=== PATIENT | female | born 1960 | race Caucasian/White ===

== ENCOUNTER 2020-12-25 18:49 | Emergency (ER) | payer MEDICARE, OTHER ==
[~2020-12-25] VITALS: Ht 165.1 cm; Wt 113.6 kg
[~2020-12-25 18:49] MED LIST: ASPI-556 PO; LISI-892 PO; METF-444 PO; TRAM50TA4 PO
[2020-12-25] MEDS ORDERED: LISI-894 PO (19:02)
[2020-12-25] MEDS ORDERED: CARV6 PO (19:02)
[2020-12-25] MEDS ORDERED: SIMV-260 PO (19:02)
[2020-12-25] MEDS ORDERED: METF-960 PO (19:02)
[2020-12-25 19:13] LABS: GLUCOSE,POINT OF CARE 222 MG/DL (70-110)
[2020-12-25 21:25] VITALS: BP 135/70
== END 2020-12-25 22:07 | disposition home or self-care (01) ==
LOC: EMS 18:49
DX: L23.9 Allergic contact dermatitis, unspecified cause (principal); E11.9 Type 2 diabetes mellitus without complications; E78.00 Pure hypercholesterolemia, unspecified; I10 Essential (primary) hypertension; Z79.899 Other long term (current) drug therapy; Z79.84 Long term (current) use of oral hypoglycemic drugs
CPT/HCPCS: 82962; 99283

== ENCOUNTER 2021-10-08 11:28 | Emergency (ER) | payer OTHER ==
[~2021-10-08] VITALS: Ht 162.6 cm; Wt 118.2 kg
[~2021-10-08 11:28] MED LIST changes: +CARV6 PO; -LISI-892 PO; +LISI-894 PO; +METF-1211 PO; -METF-444 PO; +SIMV-260 PO; -TRAM50TA4 PO
[2021-10-08 11:32] VITALS: BP 146/84
[2021-10-08] MEDS ORDERED: DICLOFENAC SODIUM 1% 100 GM GEL [2GM] TP ONE (13:45)
== END 2021-10-08 14:32 | disposition home or self-care (01) ==
LOC: EMS 11:28
DX: M75.31 Calcific tendinitis of right shoulder (principal); I10 Essential (primary) hypertension; E11.9 Type 2 diabetes mellitus without complications; Z79.84 Long term (current) use of oral hypoglycemic drugs; Z79.82 Long term (current) use of aspirin; Z79.899 Other long term (current) drug therapy
CPT/HCPCS: 99283

== ENCOUNTER 2023-02-28 12:31 | Emergency (ER) | payer OTHER ==
[~2023-02-28] VITALS: Ht 160 cm; Wt 109.1 kg
[2023-02-28 12:38] VITALS: TEMP 98.2
[2023-02-28] MEDS ORDERED: SEMA0.258 SQ (12:41)
[2023-02-28] MEDS ORDERED: OMEP20CA12 PO (12:41)
[2023-02-28] MEDS ORDERED: DOCU-350 PO (12:41)
[2023-02-28] MEDS ORDERED: ATOR20TA65 PO (12:41)
[2023-02-28] MEDS ORDERED: ASPI-1444 PO (12:41)
[2023-02-28] MEDS ORDERED: CHOL200074 PO (12:41)
[2023-02-28] MEDS ORDERED: HYDR25TA2 PO (12:41)
[2023-02-28] MEDS ORDERED: ALBU18HF12 PO (12:41)
[2023-02-28] MEDS ORDERED: DAPA10TA PO (12:41)
[2023-02-28] MEDS ORDERED: FAMO20 PO (12:41)
[2023-02-28] MEDS ORDERED: LISI40TA9 PO (12:41)
[2023-02-28] MEDS ORDERED: FERR324T3 PO (12:41)
[2023-02-28] MEDS ORDERED: METF-446 PO (12:41)
[2023-02-28] MEDS ORDERED: IBUPROFEN 600 MG TABLET PO ONE (13:15)
[2023-02-28] MEDS ORDERED: IBUP-1492 PO (13:41)
[2023-02-28 14:50] VITALS: BP 111/71; PULSE 64; RESP 16
== END 2023-02-28 15:14 | disposition home or self-care (01) ==
LOC: EMS 12:32
DX: S86.812A Strain of other muscle(s) and tendon(s) at lower leg level, left leg, initial encounter (principal); E11.9 Type 2 diabetes mellitus without complications; E78.00 Pure hypercholesterolemia, unspecified; I10 Essential (primary) hypertension; X50.1XXA Overexertion from prolonged static or awkward postures, initial encounter; Y93.89 Activity, other specified; Y92.89 Other specified places as the place of occurrence of the external cause; Y99.8 Other external cause status
CPT/HCPCS: 82962; 99283

== ENCOUNTER 2025-04-14 13:27 | Emergency (ER) | payer OTHER ==
[~2025-04-14] VITALS: Ht 160 cm; Wt 112.0 kg
[~2025-04-14 13:27] MED LIST changes: +ALBU18HF12 PO; +ASPI-1444 PO; -ASPI-556 PO; +ATOR20TA65 PO; -CARV6 PO; +CHOL200074 PO; +DAPA10TA PO; +DOCU-412 PO; +FAMO20 PO; +FERR324T3 PO; +HYDR25TA2 PO; +IBUP-1492 PO; +LISI-1024 PO; -LISI-894 PO; -METF-1211 PO; +METF-446 PO; +OMEP20CA12 PO; +SEMA0.258 SQ; -SIMV-260 PO
[2025-04-14 13:33] VITALS: BP 117/62; PULSE 65; RESP 18; TEMP 99; O2SAT 99
[2025-04-14 13:56] LABS: GLUCOMETER DEV NAME(LOC) ER.7; GLUCOSE,POINT OF CARE 134 MG/DL (70-110)
[2025-04-14 14:13] LABS: COVID AG,FIA SOURCE NASAL SWAB
[2025-04-14 14:40] LABS: SARS-COV2 (COVID) ANTIGEN,FIA Negative (Negative)
[2025-04-14 14:57] LABS: INFLUENZA TYPE A NEGATIVE FOR TYPE A (NEGATIVE); INFLUENZA TYPE B NEGATIVE FOR TYPE B (NEGATIVE)
[2025-04-14] MEDS ORDERED: IBUP-1492 PO (15:13)
== END 2025-04-14 16:57 | disposition home or self-care (01) ==
LOC: EMS 13:28
DX: S62.630A Displaced fracture of distal phalanx of right index finger, initial encounter for closed fracture (principal); E11.9 Type 2 diabetes mellitus without complications; E78.00 Pure hypercholesterolemia, unspecified; I10 Essential (primary) hypertension; Z79.85 Long-term (current) use of injectable non-insulin antidiabetic drugs; Z79.82 Long term (current) use of aspirin; Z20.822 Contact with and (suspected) exposure to COVID-19; Z79.899 Other long term (current) drug therapy; W23.0XXA Caught, crushed, jammed, or pinched between moving objects, initial encounter; Y93.89 Activity, other specified; Y92.89 Other specified places as the place of occurrence of the external cause; Y99.8 Other external cause status
CPT/HCPCS: 82962; 87804; 99284

== ENCOUNTER 2025-08-01 12:07 | Emergency (ER) | payer OTHER ==
[~2025-08-01] VITALS: Ht 160 cm; Wt 109.1 kg
[2025-08-01 12:27] VITALS: BP 151/79; PULSE 68; RESP 16; TEMP 97.9; O2SAT 100
[2025-08-01] MEDS ORDERED: DiphenhydrAMINE/ZINC ACET 30 GM CREAM TP ONE (13:30)
[2025-08-01] MEDS ORDERED: CETI10TA77 PO (13:36)
[2025-08-01] MEDS ORDERED: HYDR30CR39 TP (13:36)
[2025-08-01] MEDS: CETIRIZINE HCL 10 MG TABLET PO ONE (13:58)
[2025-08-01] MEDS: HYDROCORTISONE 1% 30 GM CREAM TP ONE (13:58)
== END 2025-08-01 14:02 | disposition home or self-care (01) ==
LOC: EMS 12:07
DX: L50.3 Dermatographic urticaria (principal); E11.9 Type 2 diabetes mellitus without complications; E78.00 Pure hypercholesterolemia, unspecified; I10 Essential (primary) hypertension; Z79.82 Long term (current) use of aspirin; Z79.84 Long term (current) use of oral hypoglycemic drugs; Z79.85 Long-term (current) use of injectable non-insulin antidiabetic drugs; Z79.899 Other long term (current) drug therapy
CPT/HCPCS: 99283